=== PATIENT | female | born 1960 | race Caucasian/White ===

== ENCOUNTER 2017-02-09 16:40 | Emergency (ER) | payer OTHER ==
[~2017-02-09] VITALS: Ht 160 cm; Wt 75.0 kg
[~2017-02-09 16:40] MED LIST: MOTRIN800 MG PO; NORCO 7.5/321 TABLET PO; VALIUM5 MG PO
[2017-02-09] MEDS ORDERED: VENTOLIN HFA18 GM IH (21:02)
[2017-02-09] MEDS ORDERED: PROVENTIL,2.5 MG/3 M IH (21:02)
[2017-02-09] MEDS ORDERED: PREDNISONE10 MG PO (21:02)
[2017-02-09 21:08] VITALS: BP 145/72
== END 2017-02-09 21:09 | disposition home or self-care (01) ==
LOC: EME 16:40
DX: J40 Bronchitis, not specified as acute or chronic (principal); F17.200 Nicotine dependence, unspecified, uncomplicated
CPT/HCPCS: 71020; 94640; 94644; 99281; 99284; J7512

== ENCOUNTER 2018-05-21 13:05 | Emergency (ER) | payer OTHER ==
[~2018-05-21] VITALS: Ht 160 cm; Wt 79.7 kg
[~2018-05-21 13:05] MED LIST changes: +PREDNISONE10 MG PO; +PROVENTIL,2.5 MG/3 M IH; +VENTOLIN HFA18 GM IH
[2018-05-21] MEDS ORDERED: VENTOLIN HFA18 GM IH (14:07)
[2018-05-21 15:10] VITALS: BP 164/82
== END 2018-05-21 15:14 | disposition home or self-care (01) ==
LOC: EME 13:05 → RME 13:05
DX: J20.9 Acute bronchitis, unspecified (principal); F17.200 Nicotine dependence, unspecified, uncomplicated
CPT/HCPCS: 71046; 94640; 94664; 94799; 99281; 99285; J1100